=== PATIENT | male | born 1980 | race Asian ===

== ENCOUNTER 2018-02-09 12:53 | Inpatient (IN) | payer OTHER ==
[~2018-02-09] VITALS: Ht 175.3 cm; Wt 109.0 kg
[2018-02-09 14:35] LABS: BASOPHIL (%) 0.3 % (0-1); BASOPHIL COUNT 0.1 K/uL (0-0.1); EOSINOPHIL (%) 0.9 % (0-5); EOSINOPHIL COUNT 0.2 K/uL (0-0.3); HEMOGLOBIN 12.7 G/DL (12.5-16.6); IMMATURE GRANULOCYTE (%) 1.5 % (0.0-0.7); LYMPHOCYTE (%) 8.1 % (15-42); LYMPHOCYTE COUNT 1.5 K/uL (1.0-2.8); MCH 27.3 PG (29.0-34.0); MCHC 31.8 G/DL (30.0-36.0); MONOCYTE COUNT 1.5 K/uL (0-0.8); NEUTROPHIL (%) 81.2 % (45-76); NEUTROPHIL COUNT 14.8 K/uL (1.8-6.4); PLATELET COUNT 349 K/uL (156-360); RBC DIS.WIDTH-CV 12.5 % (11.8-14.6); RBC DIS.WIDTH-SD 38.9 % (39-53); RED BLOOD COUNT 4.65 M/uL (4.00-5.50); WHITE BLOOD COUNT 18.2 K/uL (4.1-10.2)
[2018-02-09 14:56] LABS: APPEARANCE CLEAR ((CLEAR)); BILIRUBIN NEGATIVE; BLOOD NEGATIVE; COLOR YELLOW ((YELLOW)); GLUCOSE (STRIP) NEGATIVE; KETONES NEGATIVE; LEUKOCYTES NEGATIVE; NITRITE NEGATIVE; PROTEIN (STRIP) 100; SPECIFIC GRAVITY 1.023 (1.000-1.030)
[2018-02-09 15:01] LABS: CHLORIDE 101 MEQ/L (99-109); CREATININE 0.9 MG/DL (0.6-1.3); GFR ESTIMATE (CALCULATED) > 59 mL/min/ (58.99-99999); GLUCOSE 138 mg/dL (70-99); POTASSIUM 3.2 MEQ/L (3.7-5.4); SODIUM 137 MEQ/L (136-147); UREA NITROGEN (BUN) 14 mg/dL (9-23)
[2018-02-09 15:40] LABS: BACTERIA NONE SEEN /HPF; EPITHELIAL CELLS RARE /HPF; MUCUS TRACE /LPF; WHITE BLOOD CELLS 0-5 /HPF (0-5)
[2018-02-09] MEDS ORDERED: NEXIUM40 MG PO (17:29)
[2018-02-09] MEDS ORDERED: WELCHOL625 MG PO (17:30)
[2018-02-09] MEDS ORDERED: CEPHALEXIN500 MG PO (17:31)
[2018-02-09] MEDS ORDERED: BACTRIM,SEPT1 TABLET PO (17:32)
[2018-02-09] MEDS ORDERED: PERCOCET 5/31 TABLET PO (17:33)
[2018-02-09] MEDS ORDERED: MOTRIN600 MG PO (17:34)
[2018-02-09 17:41] VITALS: BP 127/67
[2018-02-10 01:43] VITALS: BP 120/66
[2018-02-10 04:05] VITALS: BP 118/62
[2018-02-10 06:52] VITALS: BP 120/67
[2018-02-10 07:03] LABS: HEMATOCRIT 33.5 % (38.0-50.0); HEMOGLOBIN 10.9 G/DL (12.5-16.6); MCH 27.7 PG (29.0-34.0); MCHC 32.5 G/DL (30.0-36.0); PLATELET COUNT 341 K/uL (156-360); RBC DIS.WIDTH-CV 12.4 % (11.8-14.6); RBC DIS.WIDTH-SD 38.4 % (39-53); RED BLOOD COUNT 3.94 M/uL (4.00-5.50); WHITE BLOOD COUNT 16.2 K/uL (4.1-10.2)
[2018-02-10 07:21] LABS: CHLORIDE 104 MEQ/L (99-109); CREATININE 0.8 MG/DL (0.6-1.3); GFR ESTIMATE (CALCULATED) > 59 mL/min/ (58.99-99999); GLUCOSE 197 mg/dL (70-99); SODIUM 140 MEQ/L (136-147); UREA NITROGEN (BUN) 12 mg/dL (9-23)
[2018-02-10 07:25] LABS: POTASSIUM 4.2 MEQ/L (3.7-5.4)
[2018-02-10 12:11] LABS: BASOPHIL (%) 0.2 % (0-1); EOSINOPHIL (%) 0.1 % (0-5); IMMATURE GRANULOCYTE (%) 2.2 % (0.0-0.7); LYMPHOCYTE (%) 6.8 % (15-42); LYMPHOCYTE COUNT 1.1 K/uL (1.0-2.8); MONOCYTE (%) 4.6 % (3-12); MONOCYTE COUNT 0.7 K/uL (0-0.8); NEUTROPHIL (%) 86.1 % (45-76)
[2018-02-10 12:33] VITALS: BP 118/67
[2018-02-10 15:10] VITALS: BP 119/75
[2018-02-10 20:00] VITALS: BP 122/74
[2018-02-11 00:04] VITALS: BP 155/68
[2018-02-11 04:00] VITALS: BP 132/78
[2018-02-11 08:22] VITALS: BP 105/71
[2018-02-11 10:01] LABS: ABS NEUTROPHIL COUNT 14.3; EOSINOPHIL ABS CT 0
[2018-02-11 10:36] LABS: HEMATOCRIT 35.9 % (38.0-50.0); HEMOGLOBIN 11.1 G/DL (12.5-16.6); MCHC 30.9 G/DL (30.0-36.0); MCV 87.3 FL (86-99); PLATELET COUNT 389 K/uL (156-360); RBC DIS.WIDTH-CV 12.4 % (11.8-14.6); RBC DIS.WIDTH-SD 39.9 % (39-53); RED BLOOD COUNT 4.11 M/uL (4.00-5.50); WHITE BLOOD COUNT 11.1 K/uL (4.1-10.2)
[2018-02-11 11:01] LABS: CHLORIDE 105 MEQ/L (99-109); CREATININE 0.9 MG/DL (0.6-1.3); GFR ESTIMATE (CALCULATED) > 59 mL/min/ (58.99-99999); GLUCOSE 141 mg/dL (70-99); SODIUM 142 MEQ/L (136-147); UREA NITROGEN (BUN) 12 mg/dL (9-23)
[2018-02-11 12:10] LABS: ABS NEUTROPHIL COUNT 7.8; ANISOCYTOSIS 1+; EOSINOPHIL ABS CT 0.4; EOSINOPHILS 3.6 % (0-5.0); LYMPHOCYTES 16.4 % (15.0-45.0); METAMYELOCYTES 2.7 %; MICROCYTOSIS 1+; MONOCYTES 4.6 % (0-9.0); MYELOCYTES 2.7 %; SEG.NEUTROPHILS 66.4 % (46.0-76.0); SMUDGE CELLS 3.6
[2018-02-11 12:12] LABS: BAND NEUTROPHILS 3.6 % (0-8.0)
[2018-02-11 12:20] LABS: HEMOGLOBIN A1c (GLYCOHEMOGLOB) 8.1 % (Below 5.7)
[2018-02-11 16:01] VITALS: BP 126/72
[2018-02-11] MEDS ORDERED: LEVAQUIN750 MG PO (22:46)
[2018-02-11] MEDS ORDERED: OXYCONTIN20 MG PO (22:46)
[2018-02-11] MEDS ORDERED: BACTRIM,SEPT1 TABLET PO (22:46)
[2018-02-11] MEDS ORDERED: OXYCODONE HCL10 MG PO (22:46)
[2018-02-11] MEDS ORDERED: ONDANSETRON HCL8 MG PO (22:46)
[2018-02-11] MEDS ORDERED: COLACE100 MG PO (22:46)
[2018-02-11] MEDS ORDERED: DIFLUCAN200 MG PO (22:46)
[2018-02-11 23:40] VITALS: BP 134/59
[2018-02-12 06:55] LABS: HEMATOCRIT 34.6 % (38.0-50.0); HEMOGLOBIN 11.2 G/DL (12.5-16.6); MCH 27.8 PG (29.0-34.0); MCHC 32.4 G/DL (30.0-36.0); MCV 85.9 FL (86-99); PLATELET COUNT 418 K/uL (156-360); RBC DIS.WIDTH-CV 12.2 % (11.8-14.6); RBC DIS.WIDTH-SD 38.4 % (39-53); RED BLOOD COUNT 4.03 M/uL (4.00-5.50); WHITE BLOOD COUNT 8.8 K/uL (4.1-10.2)
[2018-02-12 07:16] LABS: CHLORIDE 103 MEQ/L (99-109); CREATININE 0.9 MG/DL (0.6-1.3); GFR ESTIMATE (CALCULATED) > 59 mL/min/ (58.99-99999); GLUCOSE 149 mg/dL (70-99); POTASSIUM 4.1 MEQ/L (3.7-5.4); SODIUM 139 MEQ/L (136-147); UREA NITROGEN (BUN) 11 mg/dL (9-23)
[2018-02-12 07:19] LABS: BASOPHIL (%) 0.6 % (0-1); BASOPHIL COUNT 0.1 K/uL (0-0.1); EOSINOPHIL (%) 3.2 % (0-5); EOSINOPHIL COUNT 0.3 K/uL (0-0.3); IMMATURE GRANULOCYTE (%) 3.7 % (0.0-0.7); LYMPHOCYTE (%) 24.1 % (15-42); LYMPHOCYTE COUNT 2.1 K/uL (1.0-2.8); MONOCYTE COUNT 0.6 K/uL (0-0.8); NEUTROPHIL (%) 61.4 % (45-76); NEUTROPHIL COUNT 5.4 K/uL (1.8-6.4)
[2018-02-12 08:11] VITALS: BP 112/65
== END 2018-02-12 16:20 | disposition home health service (06) | DRG 330 ==
LOC: EME 12:53 → EDSTATUS 13:44 → SDC 14:00 → 2EAST 23:35 → 2SOUTH 23:35 → ENRESERV 23:36 → 2EAST 02-10 01:36 → ENPENDDIS 02-12 → 2EAST 02-12 16:20
PROVIDERS: Surgery
DX: K61.1 Rectal abscess (principal); L02.31 Cutaneous abscess of buttock; E11.9 Type 2 diabetes mellitus without complications
CPT/HCPCS: 36415; 71046; 74177; 76882; 80048; 80202; 81003; 82948; 83036; 85025; 87070; 87075; 87076; 87077; 87186; 87205; 88305; A6260; J0131; J1100; J1170; J1644; J1815; J1956; J2250; J2405; J3010; J3370; J7120; S0028